=== PATIENT | female | born 1935 | race African-American/Black ===

== ENCOUNTER 2017-01-27 05:31 | Day surgery (SDC) | payer MEDICARE, BC ==
[~2017-01-27] VITALS: Ht 154.9 cm; Wt 47.2 kg
[2017-01-27] MEDS ORDERED: LACTATED RINGERS 1,000 ML IV SCH ×2 (06:15→06:38)
[2017-01-27] MEDS ORDERED: CALC600T12 PO (06:28)
[2017-01-27] MEDS ORDERED: SENN8.6T8 PO (06:28)
[2017-01-27] MEDS ORDERED: GALA8CAP PO (06:28)
[2017-01-27] MEDS ORDERED: NEBI5TAB3 PO (06:28)
[2017-01-27] MEDS ORDERED: ASCO-339 PO (06:28)
[2017-01-27] MEDS ORDERED: ROSU10TA PO (06:28)
[2017-01-27] MEDS ORDERED: ACET-2178 PO (06:32)
[2017-01-27] MEDS ORDERED: HYDR25TA PO (06:32)
[2017-01-27] MEDS ORDERED: BUPIVACAINE HCL 0.5% (5MG/ML) 50ML ONE (07:17)
[2017-01-27] MEDS ORDERED: SKIN ADHESIVE 0.7 GM EA TOP ONE ×2 (07:17→07:31)
[2017-01-27] MEDS ORDERED: FENTANYL CITRATE/PF 50MCG/ML 2ML VIAL ONE (07:24)
[2017-01-27] MEDS ORDERED: PROPOFOL 200MG/20ML VIAL IV ONE (07:39)
[2017-01-27] MEDS ORDERED: METOCLOPRAMIDE HCL 10MG/2ML VIAL ONE (07:39)
[2017-01-27] MEDS ORDERED: LIDOCAINE HCL 1% 20ML VIAL (Pyxis) INJ ONE (07:39)
[2017-01-27] MEDS ORDERED: CEFAZOLIN SODIUM 1000MG/VIAL ONE (07:39)
[2017-01-27] MEDS ORDERED: ONDANSETRON HCL 4MG/2ML VIAL ONE (07:39)
[2017-01-27] MEDS ORDERED: FENTANYL CITRATE/PF 50MCG/ML 2ML VIAL IV PRN (08:00)
[2017-01-27] MEDS ORDERED: ONDANSETRON HCL 4MG/2ML VIAL IV NR (08:00)
[2017-01-27] MEDS ORDERED: EPHEDRINE SULFATE 50MG/ML VIAL ONE (08:16)
== END 2017-01-27 09:45 | disposition home or self-care (01) ==
LOC: OR 05:31
PROVIDERS: ATTEND Surgery
DX: L72.3 Sebaceous cyst (principal); I10 Essential (primary) hypertension
CPT/HCPCS: 21931; 71010; 88304; G0168; J0171; J0690; J2405; J2765; J3010; J3490; J7120; J2704